=== PATIENT | female | born 1965 | race Caucasian/White ===

== ENCOUNTER 2020-02-01 19:06 | Emergency (ER) | payer MEDICAID ==
[2020-02-01] MEDS ORDERED: Albuterol/Ipratropium 3.0-0.5 MG/3 ML Neb Soln NEB ONE (20:03)
--- NOTE | 2020-02-01 20:29 | EDM.PDOC ---
ED HPI GENERAL MEDICAL PROBLEM - General Stated Complaint: POSSIBLE PNEUMONIA Time Seen by Provider: 02/01/20 20:02 Source of Information: Reports: Patient History Limitations: Reports: No Limitations - History of Present Illness INITIAL COMMENTS - FREE TEXT/NARRATIVE: Patient comes emergency department today with complaints of shortness of breath. This patient has had shortness of breath over the past month. She was diagnosed with pneumonia as well as multiple subsegmental pulmonary emboli without acute cor pulmonale. She is on Xarelto for her PEs. She had 2 courses of antibiotics for questionable pneumonia although she was told to follow-up with pulmonology in [place] at the end of December which she did not because he had some concerns of other underlying pathology. She has been using her budesonide and her albuterol utilizer's but she really has no idea when she supposed to take them how she supposed to take them or how often she is supposed to take them. She is more short of breath over the past couple of weeks. She is cannot take the shortness of breath anymore. She has no pain in her chest. No weakness dizziness lightheadedness. No fever no chills. She has been taking her Xarelto as prescribed. She did have a DVT in her right lower extremity a couple of months ago as well. She has no syncope. No abdominal pain nausea or vomiting. No hematuria dysuria or urinary frequency. No fever no chills. She was last tested for COVID just a couple of days ago that was negative. Her symptoms really have gotten worse over the past couple of weeks nothing specifically today she is just getting tired of being short of breath. NO COVID exposure no COVID symptoms. throat Pain Score (Numeric/FACES): 4 upper chest Pain Score (Numeric/FACES): 4 - Related Data Allergies Allergy/AdvReac Type Severity Reaction Status Date / Time No Known Allergies Allergy Verified 02/01/20 21:06 Home Meds: Home Meds Albuterol [Proventil HFA] 2 puff INH Q4H PRN 09/26/17 [History] Aspirin 81 mg PO DAILY 09/26/17 [History] Famotidine [Pepcid] 20 mg PO BEDTIME 09/26/17 [History] Lisinopril 10 mg PO DAILY 09/26/17 [History] Tiotropium [Spiriva HandiHaler] 1 cap INH DAILY 09/26/17 [History] atorvaSTATin [Lipitor] 20 mg PO BEDTIME 09/26/17 [History] buPROPion [buPROPion XL] 150 mg PO BID 09/26/17 [History] metFORMIN [Glucophage XR] 500 mg PO BIDMEALS 09/26/17 [History] Past Medical History HEENT History: Reports: Cataract, Impaired Vision Cardiovascular History: Reports: Hypertension Respiratory History: Reports: Asthma, Bronchitis, Recurrent, COPD Gastrointestinal History: Reports: Chronic Diarrhea, GERD 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: Neurological History: Reports: Headaches, Chronic, Migraines Psychiatric History: Reports: Anxiety, Depression Endocrine/Metabolic History: Reports: Diabetes, Type II - Infectious Disease History Infectious Disease History: Reports: Chicken Pox, Influenza, Mumps - Past Surgical History HEENT Surgical History: Reports: Cataract Surgery Respiratory Surgical History: Reports: None Neurological Surgical History: Reports: None Social & Family History - Caffeine Use Caffeine Use: Reports: Coffee ED ROS GENERAL - Review of Systems Review Of Systems: Comprehensive ROS is negative, except as noted in HPI. ED EXAM, GENERAL - Physical Exam Exam: See Below Exam Limited By: No Limitations General Appearance: Alert, WD/WN, No Apparent Distress Eye Exam: Bilateral Eye: EOMI Ears: Normal External Exam, Normal TMs Nose: Normal Inspection, Normal Mucosa Throat/Mouth: Normal Inspection, Normal Lips, Normal Oropharynx, Normal Voice Head: Atraumatic, Normocephalic Neck: Normal Inspection, Supple, Non-Tender Respiratory/Chest: No Respiratory Distress, No Accessory Muscle Use, Chest Non- Tender, Crackles (bases bilaterally. ), Rhonchi (Course fine scattered rhonchi throughout that clear with a cough. No wheezing. No increased work of breathing. ). No: Respiratory Distress Cardiovascular: Normal Peripheral Pulses, Regular Rate, Rhythm, No Edema, No Murmur Peripheral Pulses: 2+: Radial (L), Radial (R), Posterior Tibial (L), Posterior Tibial (R), Dorsalis Pedis (L), Dorsalis Pedis (R) GI/Abdominal: Normal Bowel Sounds, Soft, Non-Tender (Female) Exam: Deferred Rectal (Female) Exam: Deferred Back Exam: Normal Inspection, Full Range of Motion Extremities: Normal Inspection, Non-Tender, Pedal Edema (He has 1+ edema to the left lower extremity and 2+ edema to the right lower extremity. She states that the edema to her right lower extremity has been there since she was recently diagnosed with a DVT. There is no tenderness to her calves.) Neurological: Alert, Oriented, Normal Cognition, No Motor/Sensory Deficits Psychiatric: Normal Affect, Normal Mood Skin Exam: Warm, Dry, Intact, Normal Color, No Rash #1 Interpretation EKG Date: 02/01/20 Time: 20:07 Rhythm: NSR Rate (Beats/Min): 85 [place]: Normal P-Wave: Present QRS: Normal ST-T: Normal QT: Normal Course - Vital Signs Last Recorded V/S: Last Vital Signs Temp 97.7 F 02/01/20 19:15 Pulse 85 02/01/20 20:30 Resp 28 H 02/01/20 19:15 BP 138/68 02/01/20 19:15 Pulse Ox 88 L 02/01/20 21:30 - Orders/Labs/Meds Orders: Active Orders 24 hr Category Date Time Status EKG Documentation Completion [RC] STAT Care 02/01/20 20:02 Active RT Aerosol Therapy [RC] ASDIRECTED Care 02/01/20 20:03 Active Chest w Cont [CT] Stat Exams 02/01/20 20:32 Taken Labs: Laboratory Tests 02/01/20 02/01/20 02/01/20 Range/Units 20:32 20:32 20:32 WBC 14.7 H (4.0-10.0) x10^3/uL RBC 4.55 (4.00-5.50) x10^6/uL Hgb 12.2 (12.0-16.0) g/dL Hct 37.0 (33.0-47.0) % MCV 81.3 (78.0-93.0) fL MCH 26.8 (26.0-32.0) pg MCHC 33.0 (32.0-36.0) g/dL RDW Coeff of Wilder 14.6 (10.0-15.0) % Plt Count 245 (130-400) x10^3/uL Add Manual Diff Yes Neutrophils % (Manual) 80 (50-80) % Lymphocytes % (Manual) 9 L (25-50) % Reactive Lymphs % 4 H (0) % Monocytes % (Manual) 7 (2-11) % Platelet Estimate Adequate PT (9.5-12.3) SEC INR (2.0-3.5) APTT (25.6-32.8) SEC Sodium 136 (136-145) mmol/L Potassium 3.7 (3.5-5.1) mmol/L Chloride 101 (98-107) mmol/L Carbon Dioxide 26 (21-32) mmol/L Anion Gap 12.7 (10-20) mmol/L BUN 16 (7-18) mg/dL Creatinine 1.0 (0.55-1.02) mg/dL Est Cr Clr Drug Dosing 54.89 mL/min Estimated GFR (MDRD) 58 Glucose 108 H (74-106) mg/dL Lactic Acid 1.2 (0.4-2.0) mmol/L Calcium 9.1 (8.5-10.1) mg/dL Corrected Calcium 9.82 (8.5-10.1) mg/dL Total Bilirubin 0.4 (0.2-1.0) mg/dL AST 14 L (15-37) U/L ALT 13 L (14-59) U/L Alkaline Phosphatase 122 H (46-116) U/L Troponin I 0.094 H* (<=0.056) ng/mL C-Reactive Protein 6.8 H (<=0.9) mg/dL NT-Pro-B Natriuret Pep 1241 H (<=125) pg/mL Total Protein 7.0 (6.4-8.2) g/dL Albumin 3.1 L (3.4-5.0) g/dL Globulin 3.9 Albumin/Globulin Ratio 0.79 01/31/20 Range/Units 20:32 WBC (4.0-10.0) x10^3/uL RBC (4.00-5.50) x10^6/uL Hgb (12.0-16.0) g/dL Hct (33.0-47.0) % MCV (78.0-93.0) fL MCH (26.0-32.0) pg MCHC (32.0-36.0) g/dL RDW Coeff of Wilder (10.0-15.0) % Plt Count (130-400) x10^3/uL Add Manual Diff Neutrophils % (Manual) (50-80) % Lymphocytes % (Manual) (25-50) % Reactive Lymphs % (0) % Monocytes % (Manual) (2-11) % Platelet Estimate PT 14.2 H (9.5-12.3) SEC INR 1.3 L (2.0-3.5) APTT 36.8 H (25.6-32.8) SEC Sodium (136-145) mmol/L Potassium (3.5-5.1) mmol/L Chloride (98-107) mmol/L Carbon Dioxide (21-32) mmol/L Anion Gap (10-20) mmol/L BUN (7-18) mg/dL Creatinine (0.55-1.02) mg/dL Est Cr Clr Drug Dosing mL/min Estimated GFR (MDRD) Glucose (74-106) mg/dL Lactic Acid (0.4-2.0) mmol/L Calcium (8.5-10.1) mg/dL Corrected Calcium (8.5-10.1) mg/dL Total Bilirubin (0.2-1.0) mg/dL AST (15-37) U/L ALT (14-59) U/L Alkaline Phosphatase (46-116) U/L Troponin I (<=0.056) ng/mL C-Reactive Protein (<=0.9) mg/dL NT-Pro-B Natriuret Pep (<=125) pg/mL Total Protein (6.4-8.2) g/dL Albumin (3.4-5.0) g/dL Globulin Albumin/Globulin Ratio Meds: Medications Discontinued Medications Generic Name Dose Route Start Last Admin Trade Name Adia PRN Reason Stop Dose Admin Albuterol/Ipratropium 3 ml 02/01/20 20:03 02/01/20 20:30 Duoneb 3.0-0.5 Mg/3 Ml NEB 02/01/20 20:04 3 ml ONETIME ONE Administration Aspirin 324 mg 02/01/20 21:22 02/01/20 21:50 Aspirin PO 02/01/20 21:23 324 mg ONETIME ONE Administration Furosemide 40 mg 02/01/20 21:22 02/01/20 21:50 Lasix PO 02/01/20 21:23 40 mg ONETIME ONE Administration Iopamidol 100 ml 02/01/20 20:36 10/13/20 21:29 Isovue-300 (61%) IVPUSH 02/01/20 20:37 100 ml ONETIME ONE Administration Methylprednisolone Sodium Succinate 125 mg 02/01/20 22:11 Solu-Medrol IVPUSH 02/01/20 22:12 ONETIME ONE - Radiology Interpretation Free Text/Narrative:: Chest x-ray per radiology again seen nodular opacification in both lungs. This correlates with findings on CT from December 2019. Airspace disease remains bilaterally. CT chest shows considerably improved right lower lobe pulmonary emboli. Minimal residual emboli noted at a branch point right lower lobe. No new emboli are demonstrated. Mediastinal and right hilar adenopathy are unchanged. No new adenopathy has developed. No pleural effusions extensive bilateral nodular disease greatest left lower lobe. Stable atelectasis left lower lobe. - Re-Assessments/Exams Free Text/Narrative Re-Assessment/Exam: 02/01/20 22:19 Patient was given a DuoNeb nebulizer with some improvement of her shortness of breath. Her oxygen saturation on room air was about 86 to 87%. She was placed on 2 L and brought her up to 94 to 96%. Her white blood cell count is mildly elevated at 14.7 with an elevated CRP as well. Her troponin is elevated 0.094. Her EKG is unchanged from previous. Aspirin 324 orally. Her proBNP is elevated at approximately 1200 she was given 40 mg of Lasix. I did repeat a CT of the chest that showed improved pulmonary emboli but the extensive adenopathy and nodules are still present. The elevated troponin the hypoxia the elevated proBNP I called and spoke with Dr. Sergei Delacruz at [facility] in [place]. HPI ER COURSE findings and concerns were relayed to him verbally over the phone. He accepted the patient in transfer at this time for further care management and workup. Solu-medrol 125mg IVP I discussed the findings of the CT scan as well as the elevated troponin. I also reviewed the patient's chart which is concerning for either malignancy and/or sarcoidosis according to the wound care technician. She has missed her last 2 pulmonary appointments that she is unable to get to [place] to see her p ulmonologist. She is still hypoxic she is tachypneic and she has chest tightness with an elevated troponin. This is most likely due to strain. Although we will transfer to [facility] in [place] for further care and evaluation. She is understanding of this and her questions are answered. Departure - Departure Time of Disposition: 21:58 Disposition: DC/Tfer to Acute Hospital 02 Clinical Impression: Hypoxia, Elevated troponin, Pulmonary nodules CHF (congestive heart failure) Qualifiers: Heart failure type: other Qualified Code(s): I50.9 - Heart failure, unspecified - Discharge Information Referrals: Jillian Tobias PA-C [Primary Care Provider] - Forms: Interfacility Transfer LISA Sepsis Event Note (ED) - Focused Exam Vital Signs: Vital Signs Temp Pulse Resp BP Pulse Ox Pulse Ox 02/01/20 21:30 88 L 02/01/20 20:30 85 02/01/20 19:15 97.7 F 102 H 28 H 138/68 92 L - My Orders Last 24 Hours: My Active Orders 02/01/20 20:02 EKG Documentation Completion [RC] STAT 02/01/20 20:03 RT Aerosol Therapy [RC] ASDIRECTED 02/01/20 20:32 Chest w Cont [CT] Stat - Assessment/Plan Last 24 Hours: My Active Orders 02/01/20 20:02 EKG Documentation Completion [RC] STAT 02/01/20 20:03 RT Aerosol Therapy [RC] ASDIRECTED 02/01/20 20:32 Chest w Cont [CT] Stat
[2020-02-01] MEDS ORDERED: Iopamidol 612 MG/ML 100 ML Bottle IVPUSH ONE (20:36)
[2020-02-01 20:58] LABS: PTT,PARTIAL THROMBOPLSTIN TIME 36.8 SEC (25.6-32.8)
--- NOTE | 2020-02-01 21:04 | CR ---
[id number] RAD/RAD Chest PA And Lateral EXAM: RAD Chest PA And Lateral INDICATION: CP SOB COMPARISON: CT from January 11, 2019. Radiograph from September 2017. DISCUSSION: Again seen is nodular opacification in both lungs. This correlates with findings on CT from December 2019. Comparison with catcher helper examination from that CT demonstrates similar to slightly improved appearance. However airspace disease remains bilaterally. IMPRESSION: As above. Allan Santillan MD 02/01/20 [id number] Thank you for allowing us to participate in the care of your patient.
[2020-02-01 21:06] VITALS: BP 138/68
[2020-02-01 21:15] LABS: ANION GAP 12.7 mmol/L (10-20)
[2020-02-01] MEDS ORDERED: Aspirin 81 MG Tab.Chew PO ONE (21:22)
[2020-02-01] MEDS ORDERED: Furosemide 40 MG Tab PO ONE (21:22)
[2020-02-01] MEDS ORDERED: methylPREDNISolone Sodium Succinate 125 MG/2 ML SDV IVPUSH ONE (22:11)
[2020-02-01 22:18] VITALS: PULSE 95
--- NOTE | 2020-02-02 07:48 | CT ---
[id number] CT/CT Chest W IV Exam: CT Chest W IV Clinical Data: SHORTNESS OF BREATH SUSPECTED SARCOIDOSIS COMPARISON: CORRELATION IS MADE WITH 2019 FINDINGS: There are no new pulmonary emboli Pulmonary emboli are decreasing The previously described pulmonary parenchymal nodular pattern including the confluent left upper lobe density remains stable Mediastinal adenopathy is unchanged IMPRESSION: DECREASING PULMONARY EMBOLI NO NEW PULMONARY EMBOLI NO CHANGE IN PRE-EXISTING PULMONARY PARENCHYMAL PATTERN OR ADENOPATHY Obdulio Lares MD 02/02/20 [id number] Thank you for allowing us to participate in the care of your patient.
== END 2020-02-01 23:05 | disposition short-term general hospital (02) ==
LOC: VM.ED 19:06
DX: I11.0 Hypertensive heart disease with heart failure (principal); I50.9 Heart failure, unspecified; R09.02 Hypoxemia; R79.89 Other specified abnormal findings of blood chemistry; R91.1 Solitary pulmonary nodule; D72.829 Elevated white blood cell count, unspecified; R79.82 Elevated C-reactive protein (CRP); J44.9 Chronic obstructive pulmonary disease, unspecified; K21.9 Gastro-esophageal reflux disease without esophagitis; F41.9 Anxiety disorder, unspecified; F32.9 Major depressive disorder, single episode, unspecified; E11.9 Type 2 diabetes mellitus without complications; Z79.82 Long term (current) use of aspirin; Z79.899 Other long term (current) drug therapy
CPT/HCPCS: 36415; 71046; 71260; 80053; 83605; 83880; 84484; 85025; 85610; 85730; 86140; 93005; 93010; 94640; 96374; 99284; 99285-25; A9270-GY; J2930; J7620-GY; Q9967

== ENCOUNTER 2020-02-17 20:57 | Inpatient (IN) | payer MEDICAID ==
[2020-02-17] MEDS ORDERED: Sodium Chloride 0.9% 10 ML Syringe FLUSH PRN (21:06)
[2020-02-17] MEDS ORDERED: Albuterol/Ipratropium 3.0-0.5 MG/3 ML Neb Soln NEB ONE ×2 (21:09→21:13)
[2020-02-17] MEDS ORDERED: methylPREDNISolone Sodium Succinate 125 MG/2 ML SDV IVPUSH ONE (21:13)
[2020-02-17] MEDS ORDERED: methylPREDNISolone Sodium Succinate 125 MG/2 ML SDV ONE (21:23)
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
[2020-02-17] MEDS ORDERED: cefTRIAXone 1 GM Vial IVPUSH ONE (21:34)
[2020-02-17 21:48] LABS: ANION GAP 17.6 mmol/L (10-20); CHLORIDE,CL 103 mmol/L (98-107); SODIUM,NA 137 mmol/L (136-145)
[2020-02-17] MEDS ORDERED: Sodium Chloride 0.9% 1,000 ML IV ONE (22:34)
[2020-02-17] MEDS ORDERED: Albuterol 0.083% 2.5 MG/3 ML Neb Soln NEB PRN (23:32)
[2020-02-17] MEDS ORDERED: Acetaminophen 325 MG Tab PO PRN (23:32)
[2020-02-17] MEDS ORDERED: Docusate Sodium 100 MG Cap PO PRN (23:32)
[2020-02-17] MEDS ORDERED: Ondansetron 4 MG Tab.DIS PO PRN (23:32)
[2020-02-17] MEDS ORDERED: Piperacillin/Tazobactam 4.5 GM in Sodium Chloride 0.9% 100 ML IV SCH (23:45)
[2020-02-17] MEDS ORDERED: Piperacillin/Tazobactam 4.5 GM in Sodium Chloride 0.9% 100 ML IV ONE (23:45)
[2020-02-17] MEDS ORDERED: Albuterol/Ipratropium 3.0-0.5 MG/3 ML Neb Soln ONE (23:53)
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
[2020-02-18 06:57] LABS: CHLORIDE,CL 104 mmol/L (98-107); SODIUM,NA 137 mmol/L (136-145)
[2020-02-18 06:58] LABS: ANION GAP 14.6 mmol/L (10-20)
[2020-02-18] MEDS: Piperacillin/Tazobactam 3.375 GM in Sodium Chloride 0.9% 100 ML IV SCH ×2 (07:47→15:45)
[2020-02-18] MEDS: Nicotine 21 MG/24 Hr Patch TRDERM SCH (07:48)
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
--- NOTE | 2020-02-18 08:10 | CT ---
[id number] CT/CT Head WO IV EXAM: NONCONTRAST HEAD CT INDICATION: TRAUMA COMPARISON: None. DISCUSSION: There is mild generalized atrophy. The orozco and white matter are normal in attenuation. No mass effect or midline shift. No acute hemorrhage or extra-axial fluid collection. No acute territorial infarct is identified. A limited look at the orbits and paranasal sinuses is unremarkable. IMPRESSION: 1. No acute findings. Jack Russo MD 02/18/20 0809 Thank you for allowing us to participate in the care of your patient.
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
[2020-02-18] MEDS ORDERED: Acetaminophen 325 MG Tab PO PRN (08:58)
[2020-02-18] MEDS ORDERED: Non-Formulary Medication 1 Each (Albuterol 2 PUFF) INH PRN (08:58)
[2020-02-18] MEDS ORDERED: NICOTINE POLACRILEX 2 MG BUCCAL PRN (08:58)
[2020-02-18] MEDS ORDERED: Ondansetron 4 MG Tab.DIS PO PRN (09:10)
[2020-02-18] MEDS ORDERED: Albuterol 2.5 MG/0.5 ML UD Neb NEB PRN (09:12)
[2020-02-18] MEDS ORDERED: Prochlorperazine 5 MG Tab PO PRN (09:13)
[2020-02-18] MEDS ORDERED: Sodium Chloride 0.9% 1,000 ML IV SCH (09:15)
[2020-02-18] MEDS ORDERED: Nicotine 21 MG/24 Hr Patch TRDERM SCH (09:15)
[2020-02-18] MEDS: Budesonide 0.5 MG/2 ML Neb Susp INH SCH ×2 (09:48→19:45)
[2020-02-18] MEDS: Apixaban 2.5 MG Tab PO SCH ×2 (09:50→19:44)
[2020-02-18] MEDS: Omeprazole 20 MG Cap.CR PO SCH (09:50)
[2020-02-18] MEDS: Dexamethasone 4 MG Tab PO SCH (09:50)
[2020-02-18] MEDS: Multivitamins with Iron/Calcium/Folic Acid/Minerals Tab PO SCH (09:50)
[2020-02-18] MEDS: guaiFENesin 600 MG Tab.ER PO SCH ×2 (09:50→19:44)
[2020-02-18] MEDS: Aspirin 81 MG Tab.EC PO SCH (09:50)
[2020-02-18] MEDS: Lisinopril 10 MG Tab PO SCH (09:51)
[2020-02-18] MEDS: Venlafaxine 150 MG Cap.ER PO SCH (09:51)
[2020-02-18] MEDS: Venlafaxine 75 MG Cap.ER PO SCH (09:52)
[2020-02-18] MEDS: Albuterol/Ipratropium 3.0-0.5 MG/3 ML Neb Soln INH SCH ×3 (11:48→19:45)
[2020-02-18] MEDS ORDERED: atorvaSTATin 10 MG Tab PO SCH (20:00)
[2020-02-18] MEDS ORDERED: OLANZapine 10 MG Tab PO SCH (20:00)
[2020-02-19] MEDS: Piperacillin/Tazobactam 3.375 GM in Sodium Chloride 0.9% 100 ML IV SCH ×2 (00:07→07:49)
[2020-02-19] MEDS: Omeprazole 20 MG Cap.CR PO SCH (06:06)
[2020-02-19] MEDS: Albuterol/Ipratropium 3.0-0.5 MG/3 ML Neb Soln INH SCH ×2 (06:06→11:01)
[2020-02-19] MEDS: Budesonide 0.5 MG/2 ML Neb Susp INH SCH (06:06)
[2020-02-19] MEDS: Nicotine 21 MG/24 Hr Patch TRDERM SCH (07:47)
[2020-02-19] MEDS: Lisinopril 10 MG Tab PO SCH (07:48)
[2020-02-19] MEDS: Venlafaxine 75 MG Cap.ER PO SCH (07:48)
[2020-02-19] MEDS: Venlafaxine 150 MG Cap.ER PO SCH (07:48)
[2020-02-19] MEDS: Apixaban 2.5 MG Tab PO SCH (07:48)
[2020-02-19] MEDS: Dexamethasone 4 MG Tab PO SCH (07:49)
[2020-02-19] MEDS: Multivitamins with Iron/Calcium/Folic Acid/Minerals Tab PO SCH (07:49)
[2020-02-19] MEDS: Aspirin 81 MG Tab.EC PO SCH (07:49)
[2020-02-19] MEDS: guaiFENesin 600 MG Tab.ER PO SCH (07:49)
[2020-02-19 11:00] VITALS: BP 123/81; PULSE 96
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
== END 2020-02-19 14:20 | disposition home or self-care (01) | DRG 178 ==
LOC: VM.ED 20:57 → VM.MS 22:55
PROVIDERS: ADMIT Family Medicine; ATTEND Physician Assistant
DX: J69.0 Pneumonitis due to inhalation of food and vomit (principal); C34.90 Malignant neoplasm of unspecified part of unspecified bronchus or lung; Z79.82 Long term (current) use of aspirin; H26.9 Unspecified cataract; H54.7 Unspecified visual loss; J44.9 Chronic obstructive pulmonary disease, unspecified; K52.9 Noninfective gastroenteritis and colitis, unspecified; F32.9 Major depressive disorder, single episode, unspecified; E11.9 Type 2 diabetes mellitus without complications; F41.9 Anxiety disorder, unspecified; Z86.718 Personal history of other venous thrombosis and embolism; Z79.01 Long term (current) use of anticoagulants; Z87.09 Personal history of other diseases of the respiratory system; Z98.49 Cataract extraction status, unspecified eye; Z87.891 Personal history of nicotine dependence; E78.5 Hyperlipidemia, unspecified; T68.XXXA Hypothermia, initial encounter; I11.0 Hypertensive heart disease with heart failure; I50.9 Heart failure, unspecified; W16.311A Fall into other water striking water surface causing drowning and submersion, initial encounter; Y92.9 Unspecified place or not applicable; D64.9 Anemia, unspecified; Z20.828 Contact with and (suspected) exposure to other viral communicable diseases
CPT/HCPCS: 36415; 70450; 71045; 80048; 80053; 82962; 83605; 83880; 85025; 85610; 87040; 94640; 99284; A9270-GY; J0696; J2543; J2930; J7030; J7050; J7620-GY; J8540; Q0164

== ENCOUNTER 2020-02-20 14:05 | Emergency (ER) | payer MEDICAID ==
[2020-02-20] MEDS: Acetaminophen/HYDROcodone 325-10 MG Tab PO ONE (14:48)
[2020-02-20] MEDS: Oxymetazoline 0.05% Nasal Spray 30 ML Bottle NAS ONE (14:49)
[2020-02-20 15:09] LABS: CHLORIDE,CL 101 mmol/L (98-107); SODIUM,NA 136 mmol/L (136-145)
[2020-02-20 15:10] LABS: ANION GAP 14.6 mmol/L (10-20)
[2020-02-20] MEDS: Take Home: Acetaminophen/HYDROcodone 325-5 MG, 5 Tab Pack PO ONE (15:25)
[2020-02-20 15:44] VITALS: BP 145/66; PULSE 112
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
== END 2020-02-20 15:27 | disposition home or self-care (01) ==
LOC: VM.ED 14:05
DX: R04.0 Epistaxis (principal); K21.9 Gastro-esophageal reflux disease without esophagitis; F41.9 Anxiety disorder, unspecified; F32.9 Major depressive disorder, single episode, unspecified; E11.9 Type 2 diabetes mellitus without complications; I10 Essential (primary) hypertension; J44.9 Chronic obstructive pulmonary disease, unspecified; Z79.82 Long term (current) use of aspirin; Z79.01 Long term (current) use of anticoagulants; Z79.899 Other long term (current) drug therapy; Z86.718 Personal history of other venous thrombosis and embolism; Z87.891 Personal history of nicotine dependence
CPT/HCPCS: 30903; 36415; 80053; 85025; 85610; 99283; 99283-25; A9270-GY

== ENCOUNTER 2020-02-22 08:55 | Emergency (ER) | payer MEDICAID ==
[2020-02-22 10:35] LABS: CHLORIDE,CL 100 mmol/L (98-107); SODIUM,NA 136 mmol/L (136-145)
[2020-02-22 10:37] LABS: ANION GAP 12.1 mmol/L (10-20)
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
[2020-02-22] MEDS ORDERED: Take Home: Amoxicillin/Clavulanate K 875-125 MG Tab, 2 Tab Pack PO ONE (16:53)
[2020-02-22] MEDS: Amoxicillin/Clavulanate K 875-125 MG Tab PO ONE (17:56)
[2020-02-23 03:26] VITALS: BP 136/58; PULSE 101
== END 2020-02-22 18:40 | disposition home or self-care (01) ==
LOC: VM.ED 08:55
DX: R04.0 Epistaxis (principal); D69.6 Thrombocytopenia, unspecified; C34.90 Malignant neoplasm of unspecified part of unspecified bronchus or lung; I10 Essential (primary) hypertension; J44.9 Chronic obstructive pulmonary disease, unspecified; K21.9 Gastro-esophageal reflux disease without esophagitis; F41.9 Anxiety disorder, unspecified; F32.9 Major depressive disorder, single episode, unspecified; E11.9 Type 2 diabetes mellitus without complications; Z87.891 Personal history of nicotine dependence; Z79.82 Long term (current) use of aspirin; Z79.01 Long term (current) use of anticoagulants; Z79.899 Other long term (current) drug therapy; Z86.718 Personal history of other venous thrombosis and embolism
CPT/HCPCS: 36415; 36430; 80053; 85025; 85610; 86850; 86900; 86901; 86920; 86922; 99284; A9270-GY; P9016